=== PATIENT | male | born 1980 | race African-American/Black ===

== ENCOUNTER 2021-09-06 18:35 | Emergency (ER) | payer MEDICAID ==
[~2021-09-06] VITALS: Ht 165.1 cm; Wt 65.9 kg
[2021-09-06] MEDS ORDERED: KETOROLAC TROMETHAMINE 30 MG/ML VIAL IM ONE (19:30)
[2021-09-06 20:55] VITALS: BP 126/65
[2021-09-06] MEDS ORDERED: CYCL-448 PO (21:00)
== END 2021-09-06 21:16 | disposition home or self-care (01) ==
LOC: EMS 18:35
DX: M54.50 Low back pain, unspecified (principal)
CPT/HCPCS: 99283; 72100; 96372; J1885

== ENCOUNTER 2022-06-08 13:46 | Emergency (ER) | payer MEDICAID ==
[~2022-06-08] VITALS: Ht 165.1 cm; Wt 70.5 kg
[~2022-06-08 13:46] MED LIST: CYCL-448 PO
[2022-06-08] MEDS ORDERED: KETOROLAC TROMETHAMINE 30 MG/ML VIAL IM ONE (14:30)
[2022-06-08] MEDS ORDERED: LIDOCAINE 5% TRANSDERMAL PATCH TD ONE (14:30)
[2022-06-08] MEDS ORDERED: BACLOFEN 10 MG TABLET PO ONE (14:30)
[2022-06-08] MEDS ORDERED: BACL10TA PO (15:30)
[2022-06-08] MEDS ORDERED: LIDO700A15 TP (15:30)
[2022-06-08] MEDS ORDERED: IBUP-1492 PO (15:31)
[2022-06-08 15:47] VITALS: BP 126/79
== END 2022-06-08 15:59 | disposition home or self-care (01) ==
LOC: EMS 13:48
DX: M54.9 Dorsalgia, unspecified (principal)
CPT/HCPCS: 99283; 96372; J1885

== ENCOUNTER 2022-06-10 14:36 | Emergency (ER) | payer MEDICAID ==
[~2022-06-10] VITALS: Ht 165.1 cm; Wt 65.9 kg
[~2022-06-10 14:36] MED LIST changes: +BACL10TA PO; -CYCL-448 PO; +IBUP-1492 PO; +LIDO700A15 TP
[2022-06-10] MEDS ORDERED: ACETAMINOPHEN/CODEINE 300-30 MG TABLET PO ONE (15:45)
[2022-06-10] MEDS ORDERED: KETOROLAC TROMETHAMINE 30 MG/ML VIAL IVP ONE (15:45)
[2022-06-10] MEDS ORDERED: METHOCARBAMOL 100 MG/ML 10 ML VIAL IVP ONE (15:45)
[2022-06-10 16:25] VITALS: BP 109/63
[2022-06-10] MEDS ORDERED: HYDR-4723 PO (16:35)
[2022-06-10] MEDS ORDERED: LORazepam 1 MG TABLET PO ONE (16:45)
[2022-06-10] MEDS ORDERED: LIDOCAINE 5% TRANSDERMAL PATCH TD ONE (16:45)
== END 2022-06-10 17:11 | disposition home or self-care (01) ==
LOC: EMS 14:39
DX: G89.29 Other chronic pain (principal)
CPT/HCPCS: 99284; 96374; 96375; J1885; J2800